=== PATIENT | female | born 1970 | race Caucasian/White ===

== ENCOUNTER → 2017-03-18 | Outpatient (CLI) | payer BC ==
--- NOTE | ~2017-03-18 | MY11 ---
[facility] A Service of [facility] RADIOLOGY TEXT RESULTS PATIENT: FAUSTO BARROW LOCATION: [facility] : 72 UNIT #: [id number] AGE: [address]: CINDY MUKHERJEE MD SEX: F ORDER DR: [id number] [facility] [address] [place], [place] [address] [id number] O MR#: [id number] Acc #: [id number] NAME: FAUSTO BARROW : 1970 SEX: F STUDY DATE/TIME: 03/18/2017 15:48 UNIT: [facility] ROOM: STUDY DESCRIPTION: MY Mammogram Screening Dig Pepito Attending Physician: Cindy Mukherjee Ordering Physician: Edilberto Mukherjee M.D. Primary Care Physician: Cindy Mukherjee MEDICAL IMAGING REPORT This report is preliminary unless electronic signature is present EXAM Bilateral digital screening mammogram with CAD. INDICATION Breast cancer screening. 46-year-old asymptomatic female reports a grandmother with postmenopausal breast cancer. COMPARISON 03/15/2016, 02/23/2015, 01/12/2011, 01/04/2011 FINDINGS The breast tissue is extremely dense, which may lower the sensitivity of mammography. No suspicious findings are seen. IMPRESSION No mammographic evidence of malignancy. Annual clinical breast exam is recommended. Given the patient's breast density, she would likely benefit from annual screening breast tomosynthesis given increased sensitivity and diminished false positive rate as compared to conventional digital mammography. Patients over the age of 40 are entered into a reminder system with target due date for the next mammogram. A result letter will be sent to the patient. BIRADS: 1 Negative Dictated by... Serafin Adamson M.D. THIS IS AN ELECTRONICALLY VERIFIED REPORT Serafin Adamson M.D. at 03/19/2017 5:29 PM BLM/to [facility] A Service of [facility] RADIOLOGY TEXT RESULTS PATIENT: FAUSTO BARROW LOCATION: [facility] : 72 UNIT #: [id number] AGE: [address]: CINDY MUKHERJEE MD SEX: F ORDER DR: TD: 03/18/2017 20:56 JOB #: [id number] MEDICAL IMAGING REPORT Page 1 of 1 COPY
== END | disposition home or self-care (01) ==
LOC: CWCC 15:27
DX: Z12.31 Encounter for screening mammogram for malignant neoplasm of breast (principal); Z80.3 Family history of malignant neoplasm of breast
CPT/HCPCS: G0202